=== PATIENT | female | born 1960 | race Caucasian/White ===

== ENCOUNTER → 2016-11-25 | Outpatient (CLI) | payer OTHER ==
[~2016-11-25] MED LIST: ENALAPRIL MALEA20 MG PO; NEXIUM40 MG PO; SYNTHROID100 MCG PO
[2016-11-25 09:12] LABS: HEMOGLOBIN 10.5 gm/dl (12.3-15.3); RED BLOOD COUNT 3.68 M/UL (4.00-5.10); WHITE BLOOD COUNT 3.1 K/UL (4.5-11.0)
[2016-11-25 09:42] LABS: BUN/CREATININE RATIO 22 (0-10)
== END ==
LOC: OPSV 08:16
PROVIDERS: Internal Medicine
DX: C92.40 Acute promyelocytic leukemia, not having achieved remission (principal); Z88.8 Allergy status to other drugs, medicaments and biological substances; Z88.0 Allergy status to penicillin; Z88.1 Allergy status to other antibiotic agents
CPT/HCPCS: 80053; 82465; 84478; 85025; 85379; 85384; 85610; 85730

== ENCOUNTER → 2016-12-02 | Outpatient (CLI) | payer OTHER ==
[2016-12-02 08:44] LABS: RED BLOOD COUNT 3.85 M/UL (4.00-5.10); WHITE BLOOD COUNT 4.4 K/UL (4.5-11.0)
[2016-12-02 09:13] LABS: BUN/CREATININE RATIO 19 (0-10)
== END ==
LOC: LAB 08:11
PROVIDERS: Internal Medicine
DX: C92.40 Acute promyelocytic leukemia, not having achieved remission (principal)
CPT/HCPCS: 36415; 80053; 82465; 84478; 85025; 85379; 85384; 85610; 85730

== ENCOUNTER → 2017-01-13 | Outpatient (CLI) | payer OTHER ==
[2017-01-13 12:18] LABS: HEMOGLOBIN 11.8 gm/dl (12.3-15.3); RED BLOOD COUNT 4.15 M/UL (4.00-5.10); WHITE BLOOD COUNT 4.5 K/UL (4.5-11.0)
[2017-01-13 12:41] LABS: BUN/CREATININE RATIO 15 (0-10)
== END ==
LOC: LAB 11:20
PROVIDERS: Internal Medicine
DX: C92.40 Acute promyelocytic leukemia, not having achieved remission (principal)
CPT/HCPCS: 36415; 80053; 82465; 84478; 85025; 85379; 85384; 85610; 85730

== ENCOUNTER → 2017-02-24 | Outpatient (CLI) | payer OTHER ==
[2017-02-24 10:51] LABS: HEMOGLOBIN 11.6 gm/dl (12.3-15.3); RED BLOOD COUNT 4.15 M/UL (4.00-5.10)
[2017-02-24 11:12] LABS: BUN/CREATININE RATIO 20 (0-10)
== END ==
LOC: LAB 10:03
PROVIDERS: Internal Medicine
DX: C92.40 Acute promyelocytic leukemia, not having achieved remission (principal)
CPT/HCPCS: 36415; 80053; 82465; 84478; 85025; 85379; 85384; 85610; 85730

== ENCOUNTER → 2021-04-11 | Outpatient (CLI) | payer OTHER ==
[~2021-04-11] MED LIST changes: +XARELTO15 MG PO
== END ==
LOC: KOH-I 10:24
DX: U07.1 COVID-19 (principal)
CPT/HCPCS: 71046